=== PATIENT | female | born 1975 | race Two or more races ===

== ENCOUNTER → 2020-03-22 06:00 | Outpatient (CLI) | payer OTHER ==
[~2020-03-22] VITALS: Ht 170.2 cm; Wt 72.6 kg
[~2020-03-22 06:00] MED LIST: METFORMIN HCL500 MG PO
== END | disposition home or self-care (01) ==
LOC: LAB 06:00 → SURH 03-25 10:15 → EDSTATUS 03-25 10:15
PROVIDERS: ATTEND Specialist
DX: D25.9 Leiomyoma of uterus, unspecified (principal); Z03.818 Encounter for observation for suspected exposure to other biological agents ruled out

== ENCOUNTER 2020-04-05 10:29 | Outpatient (CLI) | payer OTHER ==
[2020-04-05] MEDS ORDERED: METFORMIN HCL500 MG PO (14:00)
== END 2020-04-05 10:41 | disposition home or self-care (01) ==
LOC: LAB 10:29
PROVIDERS: ATTEND Internal Medicine
DX: R73.09 Other abnormal glucose (principal)

== ENCOUNTER 2020-09-23 10:15 | Inpatient (IN) | payer OTHER ==
[~2020-09-23] VITALS: Ht 172.7 cm; Wt 77.1 kg
[2020-10-03] MEDS ORDERED: PERCOCET 5-3251 EACH PO (08:01)
== END 2020-10-03 10:14 | disposition home or self-care (01) | DRG 743 ==
LOC: O/R 09-30 05:26 → SURH 09-30 07:00 → OB/GYN 09-30 11:10
PROVIDERS: ADMIT Specialist; ATTEND Specialist
PROC: 0UB70ZZ Excision of Bilateral Fallopian Tubes, Open Approach (ICD-10-PCS; 2020-09-30)
PROC: 0UT90ZZ Resection of Uterus, Open Approach (ICD-10-PCS; principal; 2020-09-30 07:00)
DX: D25.1 Intramural leiomyoma of uterus (principal); N72 Inflammatory disease of cervix uteri; E11.9 Type 2 diabetes mellitus without complications; E55.9 Vitamin D deficiency, unspecified

== ENCOUNTER 2020-09-23 12:36 | Outpatient (CLI) | payer OTHER | END 2020-09-23 12:58 | disposition home or self-care (01) | LOC: RAD 12:36 | DX: I10 Essential (primary) hypertension (principal) ==

== ENCOUNTER 2020-09-28 11:30 | Outpatient (CLI) | payer OTHER | END 2020-09-28 11:38 | disposition home or self-care (01) | LOC: LAB 11:30 | PROVIDERS: ATTEND Internal Medicine | DX: D25.9 Leiomyoma of uterus, unspecified (principal) ==

== ENCOUNTER 2021-04-17 08:01 | Outpatient (CLI) | payer OTHER ==
[~2021-04-17 08:01] MED LIST changes: +PERCOCET 5-3251 EACH PO
== END 2021-04-17 13:52 | disposition home or self-care (01) ==
LOC: LAB 08:01
DX: N18.1 Chronic kidney disease, stage 1 (principal); E11.21 Type 2 diabetes mellitus with diabetic nephropathy; R10.9 Unspecified abdominal pain; R10.2 Pelvic and perineal pain; R19.00 Intra-abdominal and pelvic swelling, mass and lump, unspecified site; E11.65 Type 2 diabetes mellitus with hyperglycemia; E78.2 Mixed hyperlipidemia

== ENCOUNTER 2021-04-20 10:33 | Outpatient (CLI) | payer OTHER | END 2021-04-20 10:34 | disposition home or self-care (01) | LOC: LAB 10:33 | PROVIDERS: ATTEND Specialist/Technologist, Other Nephrology | DX: N18.1 Chronic kidney disease, stage 1 (principal); E11.21 Type 2 diabetes mellitus with diabetic nephropathy ==

== ENCOUNTER 2021-04-21 09:37 | Outpatient (CLI) | payer OTHER | END 2021-04-21 09:53 | disposition home or self-care (01) | LOC: TOM 09:37 | PROVIDERS: ATTEND General Practice | DX: N28.89 Other specified disorders of kidney and ureter (principal); R10.84 Generalized abdominal pain; R10.2 Pelvic and perineal pain; R19.00 Intra-abdominal and pelvic swelling, mass and lump, unspecified site ==

== ENCOUNTER 2021-05-25 12:58 | Outpatient (CLI) | payer OTHER | END 2021-05-25 13:00 | disposition home or self-care (01) | LOC: NUCLEAR 12:58 | PROVIDERS: ATTEND Urology | DX: R13.0 Aphagia (principal) | CPT/HCPCS: 78707; A4641; J1940 ==

== ENCOUNTER 2021-06-05 10:52 | Outpatient (CLI) | payer OTHER | END 2021-06-05 11:13 | disposition home or self-care (01) | LOC: MAMO-SONO 10:52 | PROVIDERS: ATTEND Specialist | DX: R92.1 Mammographic calcification found on diagnostic imaging of breast (principal); Z12.31 Encounter for screening mammogram for malignant neoplasm of breast ==

== ENCOUNTER 2021-12-06 08:00 | Outpatient (CLI) | payer OTHER | END 2021-12-06 08:30 | disposition home or self-care (01) | LOC: PPH VACUNA 08:00 | PROVIDERS: ATTEND Emergency Medicine Pediatric Emergency Medicine | DX: Z23 Encounter for immunization (principal) ==

== ENCOUNTER 2021-12-07 07:27 | Outpatient (CLI) | payer OTHER | END 2021-12-07 07:37 | disposition home or self-care (01) | LOC: TOM 07:27 | PROVIDERS: ATTEND Surgery | DX: K43.2 Incisional hernia without obstruction or gangrene (principal) ==

== ENCOUNTER 2022-03-02 11:17 | Outpatient (CLI) | payer OTHER | END 2022-03-02 11:25 | disposition home or self-care (01) | LOC: SONOGRAMA 11:17 | PROVIDERS: ATTEND Surgery | DX: K43.2 Incisional hernia without obstruction or gangrene (principal); N83.9 Noninflammatory disorder of ovary, fallopian tube and broad ligament, unspecified ==

== ENCOUNTER 2022-03-15 06:46 | Outpatient (CLI) | payer OTHER | END 2022-03-15 07:15 | disposition home or self-care (01) | LOC: MRI 06:46 | DX: N83.9 Noninflammatory disorder of ovary, fallopian tube and broad ligament, unspecified (principal) | CPT/HCPCS: 72195; 74181 ==

== ENCOUNTER 2022-06-04 12:44 | Outpatient (CLI) | payer OTHER | END 2022-06-04 12:59 | disposition home or self-care (01) | LOC: RAD 12:44 | PROVIDERS: ATTEND General Practice | DX: R53.81 Other malaise (principal); R05.9 Cough, unspecified; Z20.822 Contact with and (suspected) exposure to COVID-19 ==

== ENCOUNTER 2022-10-19 12:27 | Outpatient (CLI) | payer OTHER | END 2022-10-19 12:55 | disposition home or self-care (01) | LOC: SONOGRAMA 12:27 | PROVIDERS: ATTEND Surgery | DX: N83.8 Other noninflammatory disorders of ovary, fallopian tube and broad ligament (principal) ==

== ENCOUNTER 2023-03-06 09:54 | Outpatient (CLI) | payer OTHER | END 2023-03-06 10:16 | disposition home or self-care (01) | LOC: SONOGRAMA 09:54 | PROVIDERS: ATTEND General Practice | DX: M25.511 Pain in right shoulder (principal); M79.621 Pain in right upper arm; M25.521 Pain in right elbow ==

== ENCOUNTER 2023-03-29 08:37 | Outpatient (CLI) | payer OTHER | END 2023-03-29 08:44 | disposition home or self-care (01) | LOC: SONOGRAMA 08:37 | PROVIDERS: ATTEND Physical Medicine & Rehabilitation | DX: M75.51 Bursitis of right shoulder (principal) ==

== ENCOUNTER → 2023-09-09 11:04 | Outpatient (CLI) | payer OTHER | END | disposition home or self-care (01) | LOC: NUCLEAR 11:00 | DX: I87.2 Venous insufficiency (chronic) (peripheral) (principal) ==

== ENCOUNTER → 2023-09-10 10:50 | Outpatient (CLI) | payer OTHER | END | disposition home or self-care (01) | LOC: NUCLEAR 10:50 | DX: I87.2 Venous insufficiency (chronic) (peripheral) (principal) ==

== ENCOUNTER 2023-09-18 07:29 | Outpatient (CLI) | payer OTHER | END 2023-09-18 12:21 | disposition home or self-care (01) | LOC: TOM 07:29 | PROVIDERS: ATTEND Surgery | DX: K43.2 Incisional hernia without obstruction or gangrene (principal); K40.90 Unilateral inguinal hernia, without obstruction or gangrene, not specified as recurrent ==

== ENCOUNTER 2023-09-26 08:43 | Outpatient (CLI) | payer OTHER | END 2023-09-26 08:58 | disposition home or self-care (01) | LOC: SONOGRAMA 08:43 | DX: K76.0 Fatty (change of) liver, not elsewhere classified (principal); E05.90 Thyrotoxicosis, unspecified without thyrotoxic crisis or storm ==

== ENCOUNTER 2023-11-05 11:11 | Outpatient (CLI) | payer OTHER | END 2023-11-05 11:23 | disposition home or self-care (01) | LOC: RAD 11:11 | DX: M25.532 Pain in left wrist (principal); N18.1 Chronic kidney disease, stage 1 ==

== ENCOUNTER 2024-07-15 07:32 | Outpatient (CLI) | payer OTHER ==
[~2024-07-15 07:32] MED LIST changes: +DICLOFENAC POTA50 MG PO; +NORFLEX100MG PO
== END 2024-07-15 07:33 | disposition home or self-care (01) ==
LOC: NUCLEAR 07:32
PROVIDERS: ATTEND Internal Medicine
DX: E03.9 Hypothyroidism, unspecified (principal)

== ENCOUNTER → 2024-07-16 07:58 | Outpatient (CLI) | payer OTHER | END | disposition home or self-care (01) | LOC: NUCLEAR 07-09 07:00 | PROVIDERS: ATTEND Internal Medicine | DX: E05.91 Thyrotoxicosis, unspecified with thyrotoxic crisis or storm (principal) ==

== ENCOUNTER 2025-02-09 08:28 | Outpatient (CLI) | payer OTHER | END 2025-02-09 08:31 | disposition home or self-care (01) | LOC: TOM 08:28 | PROVIDERS: ATTEND Surgery | DX: K43.2 Incisional hernia without obstruction or gangrene (principal) ==

== ENCOUNTER 2025-03-10 05:55 | Day surgery (SDC) | payer OTHER ==
[2025-03-03 09:50] VITALS: BP 135/82
[2025-03-03 09:59] LABS: PH,URINE 5.5 (5.0-8.0); URINE APPEARANCE Clear; URINE BILIRRUBIN Negative (NEGATIVE); URINE BLOOD Negative; URINE COLOR Yellow; URINE GLUCOSE Negative (NEGATIVE); URINE KETONE Negative (NEGATIVE); URINE LEUKOCYTE Negative; URINE NITRATE Negative; URINE PROTEIN Negative (NEGATIVE); URINE UROBILINOGEN 0.2 E.U./dl
[2025-03-03 10:00] LABS: BASO % 0.4 % (0.1-1.2); EOS # 0.11 (0.04-0.54); HEMATOCRIT 45.6 % (34.1-44.9); LYMPH # 1.82 (1.18-3.74); LYMPH % 16.8 % (19.3-53.1); MEAN CORPUSCULAR HEMOGLOBIN 28.2 pg (25.6-32.2); MONO # 0.82 (0.24-0.82); MONO % 7.6 % (4.7-12.5); NEUT # 8.02 (1.56-6.13); NEUT % 73.7 % (34.0-71.1); PLATELET COUNT 283 K/uL (163-369); RED BLOOD COUNT 5.31 M/uL (3.93-5.22); RED CELL DISTRIBUTION WIDTH 12.3 % (11.6-14.4)
[2025-03-03 10:06] LABS: URINE BACTERIA 1745.4 uL (0.0-1933); URINE EPITHELIAL CELLS 17.7 uL (0.0-38.8); URINE RBC 2.2 uL (0.0-20.8); URINE WBC 15.9 uL (0.0-23.2)
[2025-03-03 10:22] LABS: URINE CAST 0.29 uL (0.0-1.40)
[2025-03-03 10:39] LABS: INR 0.96; PARTIAL THROMBOPLASTIN TIME 26.5 SECONDS (22.0-34.0); PROTHROMBIN TIME 10.5 SECONDS (9.0-11.5)
[2025-03-03 11:00] LABS: CALCIUM 9.1 mg/dL (8.5-10.1); CREATININE SERUM 0.67 mg/dL (0.55-1.02); GFR 93.94; POTASSIUM 5.07 mEq/L (3.5-5.1)
[~2025-03-10] VITALS: Ht 167.6 cm; Wt 74.8 kg
[~2025-03-10 05:55] MED LIST changes: +GLIMEPIRIDE2 MG; +JANUMET 50-1,01 EACH PO
[2025-03-10] MEDS ORDERED: METRONIDAZOLE/SODIUM CHLORIDE 500 MG/100 ML PIGGYBACK IV ONE (08:12)
[2025-03-10] MEDS ORDERED: CEFTRIAXONE SODIUM 2,000 MG VIAL ONE (08:12)
[2025-03-10] MEDS ORDERED: ENOXAPARIN SODIUM 40 MG/0.4 ML SYRINGE SUBCUTANEO ONE (08:19)
[2025-03-10] MEDS ORDERED: BUPIVACAINE HCL/MPF 0.5% 30ML VIAL ONE (09:43)
[2025-03-10] MEDS ORDERED: PERCOCET 5-3251 EACH PO (12:58)
[2025-03-10] MEDS ORDERED: CELEBREX200MG PO (12:58)
[2025-03-10] MEDS ORDERED: NEURONTIN300 MG PO (12:58)
[2025-03-10] MEDS ORDERED: POLY119PG PO (12:59)
== END 2025-03-10 16:15 | disposition home or self-care (01) ==
LOC: CIR.AMB 05:55
PROVIDERS: ATTEND Surgery
DX: K43.0 Incisional hernia with obstruction, without gangrene (principal)
CPT/HCPCS: 49594; C1781